=== PATIENT | female | born 1980 | race Two or more races ===

== ENCOUNTER 2016-10-18 13:26 | Emergency (ER) | payer OTHER ==
[~2016-10-18] VITALS: Ht 149.9 cm; Wt 72.6 kg
--- NOTE | 2016-10-18 13:40 | NUR ---
PT CAME IN FOR ABD PAIN X FEW DAYS WITH FEVER AND JOINT PAINS. DENIES N/V/D. SEEN BY MD FOR EVAL. VSS. SAFETY AND COMFORT MEASURES PROVIDED. WILL MONITOR.
[2016-10-18] MEDS ORDERED: ONDANSETRON HCL/PF 4 MG/2 ML VIAL ONE (14:49)
[2016-10-18] MEDS ORDERED: MORPHINE SULFATE INJ 4 MG/ML DISP.SYRIN ONE ×2 (14:49→15:42)
[2016-10-18] MEDS ORDERED: IV NS 0.9% 1,000 ML ONE (14:49)
[2016-10-18 14:52] LABS: BASOPHILS % (AUTO) 0.2 % (0.0-2.0); EOSINOPHILS % (AUTO) 0.2 % (0.0-6.0); HEMATOCRIT 37 % (33-45); HEMOGLOBIN 12.6 g/dL (11.5-14.8); LYMPHOCYTES # (AUTO) 1.4 /CMM (0.8-4.8); LYMPHOCYTES % (AUTO) 12.7 % (20.0-44.0); MEAN CORPUSCULAR HEMOGLOBIN 31 PG (26.0-33.0); MEAN CORPUSCULAR HGB CONC 34 g/dl (31.0-36.0); MEAN CORPUSCULAR VOLUME 91 fL (82-100); MONOCYTES % (AUTO) 9.4 % (2.0-12.0); NEUTROPHILS # (AUTO) 8.8 /CMM (1.8-8.9); NEUTROPHILS % (AUTO) 77.5 % (43.0-81.0); PLATELET COUNT (AUTO) 230 /CMM (150-450); RDW COEFFICIENT OF VARIATION 12.3 (11.5-15.0); RED BLOOD CELL COUNT(AUTO) 4.08 MIL/uL (4.0-5.2); WHITE BLOOD COUNT (AUTO) 11.2 K/uL (4.3-11.0)
[2016-10-18] MEDS ORDERED: IV NS 0.9% 1,000 ML BAG IV ONE (15:00)
[2016-10-18] MEDS ORDERED: ONDANSETRON HCL/PF 4 MG/2 ML VIAL IVP ONE (15:00)
[2016-10-18] MEDS ORDERED: MORPHINE SULFATE INJ 2 MG/ML DISP.SYRIN IV ONE ×2 (15:00→16:00)
--- NOTE | 2016-10-18 15:00 | NUR ---
IV ACCESS STARTED. BLOOD DRAWN FOR LABS. PT MEDICATED ORDERED.
[2016-10-18 15:01] LABS: CALCIUM, SERUM 8.6 mg/dL (8.5-10.1); CREATININE 0.9 mg/dL (0.6-1.3); POTASSIUM 3.8 mmol/L (3.5-5.1)
[2016-10-18 15:06] LABS: APPEARANCE,URINE Slightly Cloudy (CLEAR); BILIRUBIN,URINE SMALL (NEGATIVE); BLOOD, URINE Large Ery/uL (NEGATIVE); COLOR,URINE Yellow (YELLOW); KETONES,URINE Trace (NEGATIVE); LEUKOCYTE ESTERASE ,URINE Small (NEGATIVE); NITRITE, URINE Negative (NEGATIVE); PROTEIN,URINE 100 mg/dl (NEGATIVE); UGLUCOSE Negative (NEGATIVE)
[2016-10-18 15:10] LABS: PREGNANCY TEST URINE QUAL NEGATIVE (NEGATIVE)
[2016-10-18 15:20] LABS: BACTERIA,URINE Many /HPF (None Seen); SQUAMOUS EPITHELIAL CELL,UR Moderate /HPF (None Seen); WBC,URINE 21-50 /HPF (0-3)
[2016-10-18] MEDS ORDERED: KETOROLAC TROMETHAMINE INJ 30 MG/ML VIAL IV ONE (15:30)
[2016-10-18] MEDS ORDERED: CEFTRIAXONE 1GM BAG (ER ONLY) 50 ML IV ONE (15:42)
[2016-10-18] MEDS ORDERED: KETOROLAC TROMETHAMINE INJ 30 MG/ML VIAL ONE (15:42)
[2016-10-18] MEDS ORDERED: CEFTRIAXONE 1GM BAG (ER ONLY) 1 GM/50 ML PIGGYBACK IV ONE (16:00)
--- NOTE | 2016-10-18 16:30 | NUR ---
PT TAKEN TO CT.
--- NOTE | 2016-10-18 17:15 | NUR ---
IV removed. Catheter intact and site benign. Pressure and 4x4 applied to site. No bleeding noted.
--- NOTE | 2016-10-18 17:31 | NUR ---
Patient discharged to home in stable condition. Written and verbal after care instructions given. Patient verbalizes understanding of instruction.
[2016-10-18 17:36] VITALS: BP 109/66
== END 2016-10-18 17:37 | disposition home or self-care (01) ==
LOC: ER 13:31
DX: N12 Tubulo-interstitial nephritis, not specified as acute or chronic (principal); E03.9 Hypothyroidism, unspecified; J45.909 Unspecified asthma, uncomplicated
CPT/HCPCS: 36415; 72128; 74176; 80048; 81001; 84703; 85025; 87040 ×2; 87077; 87086; 87186; 96361; 96365; 96374; 96375; 96376; 99285; A4606; J0696 ×2; J1885 ×2; J2270 ×4; J2405 ×2; J7030 ×2; Z7610; 81000-TC

== ENCOUNTER 2017-05-15 19:37 | Emergency (ER) | payer OTHER ==
[~2017-05-15] VITALS: Ht 149.9 cm; Wt 72.6 kg
[2017-05-15 19:44] VITALS: BP 121/75
== END 2017-05-15 20:34 | disposition home or self-care (01) ==
LOC: ER 19:42
DX: J04.0 Acute laryngitis (principal); J45.909 Unspecified asthma, uncomplicated; E03.9 Hypothyroidism, unspecified
CPT/HCPCS: 99283; A4606; Z7610

== ENCOUNTER 2019-07-02 17:42 | Emergency (ER) | payer BC, OTHER ==
[~2019-07-02] VITALS: Ht 149.9 cm; Wt 83.5 kg
--- NOTE | 2019-07-02 17:48 | NUR ---
CAME IN FOR SOB, CHEST TIGHTNESS SORE THROAT AND FEVER X 2 DAYS. TO ER BED 8, MASK PROVIDED, HOOKED TO MONITOR, CHANGED TO HOSP GOWN, WARM BLANKET PROVIDED, PATIENT AOx4, AWAITING MD ROSEN
--- NOTE | 2019-07-02 17:54 | NUR ---
DR SMITH AT BEDSIDE
[2019-07-02] MEDS ORDERED: ALBUTEROL SULFATE INH 18 GM HFA.AER.AD IH PRN (18:00)
[2019-07-02] MEDS ORDERED: predniSONE 20 MG TABLET PO ONE (18:00)
[2019-07-02] MEDS ORDERED: predniSONE 20 MG TABLET ONE (18:06)
[2019-07-02 18:09] LABS: BASOPHILS # (AUTO) 0.1 /CMM (0.0-0.2); BASOPHILS % (AUTO) 0.7 % (0.0-2.0); EOSINOPHILS % (AUTO) 2.8 % (0.0-6.0); HEMATOCRIT 40 % (33-45); HEMOGLOBIN 13.3 g/dL (11.5-14.8); LYMPHOCYTES # (AUTO) 2.4 /CMM (0.8-4.8); MEAN CORPUSCULAR HGB CONC 33 g/dl (31.0-36.0); MEAN CORPUSCULAR VOLUME 94 fL (82-100); MONOCYTES # (AUTO) 0.7 /CMM (0.1-1.30); MONOCYTES % (AUTO) 9.7 % (2.0-12.0); NEUTROPHILS % (AUTO) 54.8 % (43.0-81.0); PLATELET COUNT (AUTO) 318 /CMM (150-450); RED BLOOD CELL COUNT(AUTO) 4.28 MIL/uL (4.0-5.2); WHITE BLOOD COUNT (AUTO) 7.4 K/uL (4.3-11.0)
[2019-07-02 18:19] LABS: CALCIUM, SERUM 8.8 mg/dL (8.5-10.1); CREATININE 0.9 mg/dL (0.6-1.3); POTASSIUM 3.8 mmol/L (3.5-5.1)
[2019-07-02 18:25] LABS: ALBUMIN 3.8 g/dL (3.4-5.0); BILIRUBIN,TOTAL 0.3 mg/dL (0.2-1.0); TOTAL PROTEIN, SERUM 8.1 g/dL (6.4-8.2)
[2019-07-02 18:27] LABS: ABG BASE EXCESS -3.5 mmol/L; ABG OXYGEN SATURATION 96.8 % (92.0-98.5); ABG PCO2 34.4 mmHg (35.0-45.0); ABG PH 7.396 (7.350-7.450); ABG PO2 94.9 mmHg (75.0-100.0); AaDO2 13.6 mmHg; MetHb 0.5 % (0.0-1.5); O2Hb 96.3 % (94.0-97.0); SITE, ABG Right Radial
[2019-07-02 19:06] VITALS: BP 112/69
--- NOTE | 2019-07-02 19:06 | NUR ---
IV removed. Catheter intact and site benign. Pressure and 4x4 applied to site. No bleeding noted.Patient discharged to home in stable condition. Written and verbal after care instructions given. Patient verbalizes understanding of instruction.
== END 2019-07-02 19:07 | disposition home or self-care (01) ==
LOC: ER 17:47
DX: J45.901 Unspecified asthma with (acute) exacerbation (principal); E03.9 Hypothyroidism, unspecified
CPT/HCPCS: 36415; 36600; 71045; 80048; 80076; 85025; 99284; J7512

== ENCOUNTER 2022-12-10 18:30 | Emergency (ER) | payer BC, MEDICAID ==
[~2022-12-10] VITALS: Ht 149.9 cm; Wt 77.1 kg
[2022-12-10 21:01] VITALS: BP 109/70; TEMP 98.9; O2SAT 100
[2022-12-10] MEDS ORDERED: KETOROLAC TROMETHAMINE 15 MG/ML VIAL ONE (21:42)
[2022-12-10] MEDS: KETOROLAC TROMETHAMINE INJ 30 MG/ML VIAL IM ONE (21:47)
[2022-12-10] MEDS ORDERED: IBUP-1955 PO (21:48)
[2022-12-10] MEDS ORDERED: paxlovid PO (21:48)
== END 2022-12-10 23:35 | disposition home or self-care (01) ==
LOC: ER 18:43
DX: U07.1 COVID-19 (principal); J45.909 Unspecified asthma, uncomplicated; E03.9 Hypothyroidism, unspecified
CPT/HCPCS: 99283; 96372; J1885

== ENCOUNTER 2024-05-30 15:38 | Emergency (ER) | payer MEDICAID ==
[~2024-05-30] VITALS: Ht 149.9 cm; Wt 77.1 kg
[~2024-05-30 15:38] MED LIST: IBUP-1955 PO; paxlovid PO
[2024-05-30 15:40] VITALS: BP 103/66; TEMP 98.3
[2024-05-30] MEDS ORDERED: CYCL10TA9 PO (17:37)
[2024-05-30] MEDS ORDERED: ACET325C7 PO (17:37)
[2024-05-30] MEDS ORDERED: GUAI1TBM19 PO (17:37)
[2024-05-30] MEDS ORDERED: IBUP-1953 PO (17:37)
[2024-05-30] MEDS ORDERED: PRED20TA PO (17:37)
[2024-05-30 18:14] VITALS: O2SAT 98
== END 2024-05-30 18:14 | disposition home or self-care (01) ==
LOC: ER 15:41
DX: R05.9 Cough, unspecified (principal); M54.32 Sciatica, left side; G89.29 Other chronic pain; E03.9 Hypothyroidism, unspecified; J45.909 Unspecified asthma, uncomplicated; Z79.52 Long term (current) use of systemic steroids; Z20.822 Contact with and (suspected) exposure to COVID-19

== ENCOUNTER 2024-09-13 17:11 | Emergency (ER) | payer MEDICAID ==
[~2024-09-13] VITALS: Ht 149.9 cm; Wt 72.6 kg
[~2024-09-13 17:11] MED LIST changes: +ACET325C7 PO; +CYCL10TA9 PO; +GUAI1TBM19 PO; +IBUP-1953 PO; +PRED20TA PO
[2024-09-13 17:24] VITALS: BP 106/61; TEMP 98.2; O2SAT 98
[2024-09-13] MEDS ORDERED: ACETAMINOPHEN 325 MG TABLET ONE (18:09)
[2024-09-13] MEDS: ACETAMINOPHEN 325 MG TABLET PO ONE (18:11)
== END 2024-09-13 19:45 | disposition home or self-care (01) ==
LOC: ER 17:13
DX: M25.572 Pain in left ankle and joints of left foot (principal); E03.9 Hypothyroidism, unspecified; J45.909 Unspecified asthma, uncomplicated; Z79.52 Long term (current) use of systemic steroids; Z79.890 Hormone replacement therapy; Z79.899 Other long term (current) drug therapy
CPT/HCPCS: 73610-TC; 73630-TC

== ENCOUNTER 2024-10-26 15:01 | Emergency (ER) | payer MEDICAID ==
[~2024-10-26] VITALS: Ht 149.9 cm; Wt 72.6 kg
[2024-10-26] MEDS ORDERED: dexaMETHasone SOD PHOSPHATE 1 ML ONE (15:27)
[2024-10-26] MEDS ORDERED: KETOROLAC TROMETHAMINE INJ 30 MG/ML VIAL ONE (15:27)
[2024-10-26] MEDS ORDERED: Magnesium 1GM/D5W 100ML PREMIX 100 ML IV ONE (15:28)
[2024-10-26] MEDS ORDERED: PROCHLORPERAZINE EDISYLATE 10 MG/2 ML VIAL ONE (15:28)
[2024-10-26] MEDS: IV NS 0.9% 1,000 ML BAG IV ONE (15:58)
[2024-10-26] MEDS: KETOROLAC TROMETHAMINE INJ 30 MG/ML VIAL IV ONE (15:59)
[2024-10-26] MEDS: dexaMETHasone SOD PHOSPHATE 10 MG/ML VIAL IV ONE (16:02)
[2024-10-26] MEDS: PROCHLORPERAZINE EDISYLATE 10 MG/2 ML VIAL IVP ONE (16:03)
[2024-10-26] MEDS: Magnesium 1GM/D5W 100ML PREMIX PIGGYBACK IV ONE (16:04)
[2024-10-26] MEDS ORDERED: PROC-11 PO (17:36)
[2024-10-26] MEDS ORDERED: KETO10TA2 PO (17:36)
[2024-10-26 17:59] VITALS: BP 104/56; TEMP 98.3; O2SAT 98
== END 2024-10-26 18:00 | disposition home or self-care (01) ==
LOC: ER 15:05
DX: G43.009 Migraine without aura, not intractable, without status migrainosus (principal); E03.9 Hypothyroidism, unspecified; J45.909 Unspecified asthma, uncomplicated; Z79.52 Long term (current) use of systemic steroids; Z79.899 Other long term (current) drug therapy
CPT/HCPCS: 99285; 96365; 96375; J1885; J0780; J1100; J7030; J3475